=== PATIENT | female | born 1980 | race Caucasian/White ===

== ENCOUNTER 2017-04-25 11:22 | Emergency (ER) | payer OTHER ==
--- NOTE | 2017-04-25 12:38 | ED Physician Documentation ---
History of Present Illness - Stated complaint Stated Complaint: FACIAL PAIN - Chief complaint Chief Complaint: Heent - Additonal information Additional information: hx from pt 37 f denies poreg R facial pain over maxillary and frontal sinsu region for a few days some pain to uopper R premolar as well some green nasal dc no sore throat or cough no ear pain pain is steady n(ot electric like trigeminal neuralgia) Review of Systems Constitutional: denies: Fever, Chills Ears: denies: Ear pain Nose: reports: Rhinorrhea / runny nose, Sinus pressure / pain Throat: reports: Dental pain / toothache. denies: Sore throat Cardiac: denies: Chest pain / pressure Respiratory: denies: Dyspnea, Cough GI: denies: Abdominal Pain, Nausea, Vomiting Endocrine: denies: Easy bruising / bleeding Immunocompromised: denies: Immunocompromised PD PAST MEDICAL HISTORY - Past Medical History Past Medical History: Yes Respiratory: Asthma Endocrine/Autoimmune: HyPOthyroidism - Past Surgical History Past Surgical History: No - Present Medications Home Medications: Ambulatory Orders Medication Instructions Recorded Confirmed Albuterol [Ventolin Hfa] 2 puffs INH DAILY 04/08/15 04/25/17 Levothyroxine [Synthroid] 75 mcg PO DAILY 04/08/15 04/25/17 Acetaminophen [Tylenol Extra 1,000 mg PO Q8HR PRN 04/25/17 04/25/17 Strength] Amox/Clav 875/125 [Augmentin] 1 each PO Q12H #20 tablet 04/25/17 Loratadine [Claritin] 10 mg PO DAILY PRN #10 tablet 04/25/17 Oxymetazoline HCl [Afrin] 2 spray NS BID PRN #1 bottle 04/25/17 Pseudoephedrine [Sudafed] 30 mg PO Q6H PRN #20 tablet 04/25/17 - Allergies Allergies/Adverse Reactions: Allergies Allergy/AdvReac Type Severity Reaction Status Date / Time Sulfa (Sulfonamide Allergy abd pain Verified 01/08/14 13:28 Antibiotics) - Social History Does the pt smoke?: No Smoking Status: Never smoker Does the pt drink ETOH?: Yes Does the pt have substance abuse?: No - POLST Patient has POLST: No PD ED PE NORMAL - Vitals Vital signs reviewed: Yes - General General: Alert and oriented X 3 - HEENT HEENT: PERRL, EOMI (s pain), Ears normal, Moist mucous membranes, Pharynx benign , Other (cavity upper right premoalr but no TTP or gum swelling - pt advised, some right maxillary and frontal sinus TTP mostly pt states there is immense pressure) - Neck Neck: Supple, no meningeal sign - Cardiac Cardiac: RRR - Respiratory Respiratory: No respiratory distress, Clear bilaterally - Abdomen Abdomen: Soft, Non tender - Derm Derm: Normal color - Neuro Neuro: Alert and oriented X 3, No motor deficit, No sensory deficit Results - Vitals Vitals: Vital Signs - 24 hr 04/25/17 11:31 Temperature 36.4 C L Heart Rate 75 Respiratory 18 Rate Blood Pressure 133/81 H O2 Saturation 100 Oxygen O2 Source Room air Departure - Departure Disposition: Home, Self Care Clinical Impression: Sinusitis Condition: Good Instructions: ED Headache Sinus Prescriptions: Oxymetazoline HCl [Afrin] 2 spray NS BID PRN #1 bottle PRN Reason: nasal sinus ear congestion Amox/Clav 875/125 [Augmentin] 1 each PO Q12H #20 tablet Loratadine [Claritin] 10 mg PO DAILY PRN #10 tablet PRN Reason: sinus pressure Pseudoephedrine [Sudafed] 30 mg PO Q6H PRN #20 tablet PRN Reason: sinus pressure Comments: It seems the pain and pressure is coming from your sinuses Try the sudafed, afrin, and claritin for 48 hr - if that does not relieve the symptoms then start the antibiotic as well. Continue motrin and tylenol for the pain Follow up with your PMD for a recheck Return to the ER if worse Please follow up with christian RICKS to get your blood pressure rechecked - it was high today Forms: Activity restrictions
[2017-04-25 12:53] VITALS: BP 102/66
== END 2017-04-25 12:52 | disposition home or self-care (01) ==
LOC: ED 11:22
DX: J32.9 Chronic sinusitis, unspecified (principal); J45.909 Unspecified asthma, uncomplicated; E03.9 Hypothyroidism, unspecified
CPT/HCPCS: 99283

== ENCOUNTER 2017-11-05 22:21 | Emergency (ER) | payer OTHER ==
[2017-11-05 22:28] VITALS: BP 138/96
[2017-11-05 22:37] LABS: BILIRUBIN,URINE NEGATIVE (NEGATIVE); GLUCOSE, URINE (UA) NEGATIVE (NEGATIVE); KETONES,URINE (UA) NEGATIVE (NEGATIVE); LEUKOCYTE ESTERASE, URINE MODERATE (NEGATIVE); NITRITE,URINE NEGATIVE (NEGATIVE); OCCULT BLOOD,URINE LARGE (NEGATIVE); PROTEIN,URINE NEGATIVE (NEGATIVE); UROBILINOGEN,URINE 0.2 (NORMAL) E.U./dL (NORMAL)
[2017-11-05 22:40] LABS: CLARITY,URINE HAZY (CLEAR)
[2017-11-05 22:51] LABS: BACTERIA,URINE Moderate /HPF (None Seen); SQUAMOUS EPITHELIAL CELL,UR FEW Squamous (<= Few)
[2017-11-05 22:52] LABS: HCG UR QUAL NEGATIVE
[2017-11-05] MEDS ORDERED: PHENAZOPYRIDINE 100 MG TABLET PO STA (22:55)
[2017-11-05] MEDS ORDERED: NITROFURANTOIN MACRO 100 MG CAPSULE PO STA (22:55)
--- NOTE | 2017-11-05 22:57 | ED Physician Documentation ---
History of Present Illness - Stated complaint Stated Complaint: FEMALE - Chief complaint Chief Complaint: UTI - History obtained from History obtained from: Patient - History of Present Illness Timing: How many hours ago (2) Pain level max: 10 Pain level now: 10 - Additonal information Additional information: Patient is a 37-year-old female who had a sudden onset of dysuria approximately 2 hours ago. States feels like previous UTIs. Has frequency of urination as well. No fevers. Mild nausea. No back pain. No abdominal pain. No vaginal bleeding or discharge. No recent changes in sexual partners. Review of Systems Constitutional: denies: Fever, Chills Respiratory: denies: Cough GI: denies: Abdominal Pain, Vomiting, Diarrhea : reports: Dysuria, Frequency. denies: Now EGA Musculoskeletal: denies: Neck pain, Back pain Neurologic: denies: Headache PD PAST MEDICAL HISTORY - Past Medical History Past Medical History: Yes Respiratory: Asthma Endocrine/Autoimmune: HyPOthyroidism - Past Surgical History Past Surgical History: No - Present Medications Home Medications: Ambulatory Orders Medication Instructions Recorded Confirmed Levothyroxine [Synthroid] 75 mcg PO DAILY 04/08/15 11/05/17 Nitrofurantoin Monohyd/M-Cryst 100 mg PO BID #10 capsule 11/05/17 [Macrobid 100 mg Capsule] Phenazopyridine HCl [Pyridium] 200 mg PO TID PRN #6 tablet 11/05/17 - Allergies Allergies/Adverse Reactions: Allergies Allergy/AdvReac Type Severity Reaction Status Date / Time Sulfa (Sulfonamide Allergy abd pain Verified 11/05/17 22:28 Antibiotics) - Social History Does the pt smoke?: No Smoking Status: Never smoker Does the pt drink ETOH?: Yes Does the pt have substance abuse?: No - POLST Patient has POLST: No PD ED PE NORMAL - Vitals Vital signs reviewed: Yes - General General: Alert and oriented X 3, No acute distress - HEENT HEENT: Moist mucous membranes - Neck Neck: Supple, no meningeal sign - Cardiac Cardiac: RRR - Respiratory Respiratory: No respiratory distress, Clear bilaterally - Abdomen Abdomen: Soft, Non tender, Non distended - Back Back: No CVA TTP - Derm Derm: Warm and dry - Neuro Neuro: Alert and oriented X 3 - Psych Psych: Normal mood, Normal affect Results - Vitals Vitals: Vital Signs - 24 hr 11/05/17 22:27 Temperature 36.2 C L Heart Rate 90 Respiratory 20 Rate Blood Pressure 138/96 H O2 Saturation 100 Oxygen O2 Source Room air - Labs Labs: Laboratory Tests 11/05/17 11/05/17 22:28 22:28 Urine Color LT. YELLOW Urine Clarity HAZY Urine pH 7.0 Ur Specific [place] <=1.005 <=1.005 Urine Protein NEGATIVE Urine Glucose (UA) NEGATIVE Urine Ketones NEGATIVE Urine Occult Blood LARGE H Urine Nitrite NEGATIVE Urine Bilirubin NEGATIVE Urine Urobilinogen 0.2 (NORMAL) Ur Leukocyte Esterase MODERATE H Urine RBC 6-10 H Urine WBC 11-25 H Ur Squamous Epith Cells FEW Squamous Urine Bacteria Moderate H Ur Microscopic Review INDICATED Urine Culture Comments INDICATED Urine HCG, Qual NEGATIVE PD MEDICAL DECISION MAKING - ED course Complexity details: considered differential, d/w patient ED course: Patient with a UTI. Will place on antibiotics and Pyridium. She is well- appearing, nontoxic. Declines a pelvic exam. I think this is reasonable we will treat her for the UTI. Patient counseled regarding signs and symptoms for which I believe and urgent re-evaluation would be necessary. Patient with good understanding of and agreement to plan and is comfortable going home at this time This document was made in part using voice recognition software. While efforts are made to proofread this document, sound alike and grammatical errors may occur. Departure - Departure Disposition: 01 Home, Self Care Clinical Impression: Cystitis Condition: Good Instructions: ED UTI Cystitis Female Follow-Up: your,doctor in 1 week if not better [Other] Prescriptions: Nitrofurantoin Monohyd/M-Cryst [Macrobid 100 mg Capsule] 100 mg PO BID #10 capsule Phenazopyridine HCl [Pyridium] 200 mg PO TID PRN #6 tablet PRN Reason: dysuria Comments: Return if you worsen. Take all antibiotics until gone.
== END 2017-11-05 23:03 | disposition home or self-care (01) ==
LOC: ED 22:21
DX: N30.90 Cystitis, unspecified without hematuria (principal); E03.9 Hypothyroidism, unspecified
CPT/HCPCS: 81001; 81025; 87086; 87181; 99283; A9270; 81003

== ENCOUNTER 2018-01-28 07:19 | Emergency (ER) | payer OTHER ==
[2018-01-28 07:28] VITALS: BP 124/79
[2018-01-28 07:41] LABS: BILIRUBIN,URINE NEGATIVE (NEGATIVE); GLUCOSE, URINE (UA) NEGATIVE (NEGATIVE); KETONES,URINE (UA) NEGATIVE (NEGATIVE); LEUKOCYTE ESTERASE, URINE MODERATE (NEGATIVE); NITRITE,URINE POSITIVE (NEGATIVE); OCCULT BLOOD,URINE NEGATIVE (NEGATIVE); PH,URINE 5.5 PH (5.0-7.5); PROTEIN,URINE TRACE mg/dL (NEGATIVE); UROBILINOGEN,URINE 1 (NORMAL) E.U./dL (NORMAL)
--- NOTE | 2018-01-28 07:42 | ED Physician Documentation ---
PD HPI FEMALE - Stated complaint Stated Complaint: FEMALE - Chief complaint Chief Complaint: Abd Pain - History obtained from History obtained from: Patient - History of Present Illness Timing - onset: Last night Timing - duration: Hours Timing - details: Gradual onset, Still present Associated symptoms: Dysuria, Urinary frequency. No: Back pain, Vaginal discharge Contributing factors: No: Similar symptoms before: Diagnosis (UTI) Recently seen: Not recently seen - Additional information Additional information: Previously well 37-year-old female has developed symptoms of urinary urgency and frequency beginning last night. She has had urinary tract infections previously a number of times, last in September of this year, and she feels that she has another urinary tract infection. She is not having fever or back pain and she is not having nausea. Review of Systems Constitutional: denies: Fever, Chills, Myalgias Nose: denies: Congestion Throat: denies: Sore throat Respiratory: denies: Dyspnea, Cough GI: denies: Abdominal Pain, Nausea, Vomiting : reports: Dysuria, Frequency Skin: denies: Rash Musculoskeletal: denies: Neck pain, Back pain, Extremity pain Neurologic: denies: Generalized weakness, Focal weakness, Numbness PD PAST MEDICAL HISTORY - Past Medical History Respiratory: Asthma Endocrine/Autoimmune: HyPOthyroidism - Past Surgical History Past Surgical History: No - Present Medications Home Medications: Ambulatory Orders Medication Instructions Recorded Confirmed Phenazopyridine HCl [Pyridium] 200 mg PO TID PRN #6 tablet 11/05/17 Nitrofurantoin Monohyd/M-Cryst 100 mg PO BID #10 capsule 01/28/18 [Macrobid 100 mg Capsule] Phenazopyridine HCl [Pyridium] 200 mg PO TID PRN #6 tablet 01/28/18 - Allergies Allergies/Adverse Reactions: Allergies Allergy/AdvReac Type Severity Reaction Status Date / Time Sulfa (Sulfonamide Allergy abd pain Verified 01/28/18 07:28 Antibiotics) - Social History Does the pt smoke?: No Smoking Status: Never smoker Does the pt drink ETOH?: Yes Does the pt have substance abuse?: No - POLST Patient has POLST: No PD ED PE NORMAL - Vitals Vital signs reviewed: Yes (normal ) - General General: Alert and oriented X 3, No acute distress, Well developed/nourished - HEENT HEENT: Atraumatic, PERRL - Neck Neck: Supple, no meningeal sign - Respiratory Respiratory: No respiratory distress - Back Back: No CVA TTP - Derm Derm: Normal color, Warm and dry, No rash - Extremities Extremities: No deformity, No edema - Neuro Neuro: No motor deficit, No sensory deficit Eye Opening: Spontaneous Motor: Obeys Commands Verbal: Oriented GCS Score: 15 - Psych Psych: Normal mood, Normal affect Results - Vitals Vitals: Vital Signs - 24 hr 01/28/18 07:24 Temperature 36.6 C Heart Rate 68 Respiratory 16 Rate Blood Pressure 124/79 O2 Saturation 100 Oxygen O2 Source Room air - Labs Labs: Laboratory Tests 01/28/18 07:38 Urine Color DK. ORANGE Urine Clarity CLEAR Urine pH 5.5 Ur Specific [place] 1.025 Urine Protein TRACE Urine Glucose (UA) NEGATIVE Urine Ketones NEGATIVE Urine Occult Blood NEGATIVE Urine Nitrite POSITIVE H Urine Bilirubin NEGATIVE Urine Urobilinogen 1 (NORMAL) Ur Leukocyte Esterase MODERATE H Urine RBC 0-5 Urine WBC 11-25 H Ur Squamous Epith Cells FEW Squamous Urine Bacteria Rare Ur Microscopic Review INDICATED Urine Culture Comments INDICATED Urine HCG, Qual NEGATIVE PD MEDICAL DECISION MAKING - ED course Complexity details: reviewed results, re-evaluated patient, considered differential, d/w patient ED course: 37-year-old female with typical symptoms of urinary tract infection that began last night has improved previously on Macrobid. Departure - Departure Disposition: 01 Home, Self Care Clinical Impression: Urinary tract infection Qualifiers: Urinary tract infection type: acute cystitis Hematuria presence: without hematuria Qualified Code(s): N30.00 - Acute cystitis without hematuria Condition: Stable Instructions: ED UTI Cystitis Female Follow-Up: TOI TRINIDAD [Primary Care Provider] - Prescriptions: Nitrofurantoin Monohyd/M-Cryst [Macrobid 100 mg Capsule] 100 mg PO BID #10 capsule Phenazopyridine HCl [Pyridium] 200 mg PO TID PRN #6 tablet PRN Reason: urinary symptoms Discharge Date/Time: 01/28/18 08:08
[2018-01-28 07:54] LABS: CLARITY,URINE CLEAR (CLEAR); HCG UR QUAL NEGATIVE
[2018-01-28 08:02] LABS: RBC,URINE 0-5 /HPF (0-5); SQUAMOUS EPITHELIAL CELL,UR FEW Squamous (<= Few)
[2018-01-28 08:03] LABS: BACTERIA,URINE Rare /HPF (None Seen)
== END 2018-01-28 08:08 | disposition home or self-care (01) ==
LOC: ED 07:19
DX: N30.00 Acute cystitis without hematuria (principal); E03.9 Hypothyroidism, unspecified
CPT/HCPCS: 81001; 81003; 81025; 87077; 87086; 99283

== ENCOUNTER 2018-05-26 23:15 | Emergency (ER) | payer OTHER ==
[2018-05-26 23:23] VITALS: BP 116/77
--- NOTE | 2018-05-26 23:39 | ED Physician Documentation ---
PD HPI HEENT - Stated complaint Stated Complaint: THROAT/EAR PX - Chief complaint Chief Complaint: Heent - History obtained from History obtained from: Patient PD PAST MEDICAL HISTORY - Past Medical History Respiratory: Asthma Endocrine/Autoimmune: HyPOthyroidism - Past Surgical History Past Surgical History: No - Present Medications Home Medications: Ambulatory Orders Medication Instructions Recorded Confirmed Cephalexin [Keflex] 500 mg PO TID #20 capsule 05/26/18 Dexamethasone [Decadron] 4 mg PO DAILY #5 tablet 05/26/18 - Allergies Allergies/Adverse Reactions: Allergies Allergy/AdvReac Type Severity Reaction Status Date / Time Sulfa (Sulfonamide Allergy abd pain Verified 05/26/18 23:26 Antibiotics) - Social History Does the pt smoke?: No Smoking Status: Never smoker Does the pt drink ETOH?: Yes Does the pt have substance abuse?: No - POLST Patient has POLST: No PD ED PE NORMAL - Vitals Vital signs reviewed: Yes - General General: Alert and oriented X 3, No acute distress, Well developed/nourished - HEENT HEENT: No: Pharynx benign (right side okay. Left tonsil with some swelling and redness. No exudate. The base of it with some redness around the tonsil. No protrusion of the tonsil toward midline. Left anterior adenopathy. Normal voice and respirations. ) - Neck Neck: Supple, no meningeal sign, Other (left adenopathy) - Cardiac Cardiac: RRR, No murmur - Respiratory Respiratory: No respiratory distress, Clear bilaterally - Abdomen Abdomen: Soft, Non tender - Derm Derm: Normal color, Warm and dry, No rash - Neuro Neuro: Alert and oriented X 3, No motor deficit, Normal speech Results - Vitals Vitals: Vital Signs - 24 hr 05/26/18 23:15 Temperature 36.9 C Heart Rate 59 L Respiratory 16 Rate Blood Pressure 116/77 O2 Saturation 100 Oxygen O2 Source Room air - Labs Labs: Laboratory Tests 05/26/18 23:22 Group A Strep Rapid Negative PD MEDICAL DECISION MAKING - ED course Complexity details: reviewed results (rapid test negative but she has clinical exam suspicious for mild/early peritonsillar infection, so will treat with abx and steroids Normal swallowing and voice. ), considered differential, d/w patient - Sepsis Event Vital Signs: Vital Signs - 24 hr 05/26/18 23:15 Temperature 36.9 C Heart Rate 59 L Respiratory 16 Rate Blood Pressure 116/77 O2 Saturation 100 Oxygen O2 Source Room air Departure - Departure Disposition: 01 Home, Self Care Clinical Impression: Peritonsillar cellulitis, Acute cervical adenitis Condition: Stable Record reviewed to determine appropriate education?: Yes Instructions: ED Peritonsillar Infec Abx No I andD Follow-Up: TOI TRINIDAD [Primary Care Provider] - Prescriptions: Cephalexin [Keflex] 500 mg PO TID #20 capsule Dexamethasone [Decadron] 4 mg PO DAILY #5 tablet Comments: Drink lots of fluids. Tylenol or ibuprofen if needed for pains or fevers. Cephalexin 3 times a day for the next week for the infection that looks likely bacterial. Decadron anti-inflammatory daily for 5 more days to reduce the inflammation as well. Recheck if not improving over the next couple of days. 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 Discharge Date/Time: 05/27/18 00:00
[2018-05-26] MEDS ORDERED: DEXAMETHASONE 10 MG/ML VIAL PO STA (23:49)
[2018-05-26] MEDS ORDERED: cephALEXin 250 MG CAPSULE PO STA (23:49)
[2018-05-26] MEDS ORDERED: ACETAMINOPHEN 325 MG TABLET PO STA (23:49)
== END 2018-05-27 | disposition home or self-care (01) ==
LOC: ED 23:15
DX: J36 Peritonsillar abscess (principal); L04.0 Acute lymphadenitis of face, head and neck
CPT/HCPCS: 87070; 87430; 99283; A9270

== ENCOUNTER 2022-06-15 08:00 | Outpatient (CLI) | payer OTHER | END 2022-06-15 23:59 | disposition home or self-care (01) | LOC: LAB.N 08:00 | PROVIDERS: ATTEND Family Medicine | DX: N39.0 Urinary tract infection, site not specified (principal) | CPT/HCPCS: 87086; 87181 ==

== ENCOUNTER 2022-08-23 16:29 | Emergency (ER) | payer OTHER ==
[2022-08-23 16:56] LABS: RAPID STREP SCREEN Negative (Negative)
[2022-08-23 17:10] VITALS: BP 123/78
--- NOTE | 2022-08-23 17:15 | ED Physician Documentation ---
History of Present Illness - Stated complaint Stated Complaint: SORE THROAT, TESTED C+ - Chief complaint Chief Complaint: General - History obtained from History obtained from: Patient - Additonal information Additional information: Pt comes to the ED with CC of "I think I have strep." Pt has had nasal congestion, a cough, and a mild fever for the past 24 hours. Now has a sore throat and nausea, and states it's like when she's had strep before. No chest or abd pain. Tested positive for covid today. Review of Systems Ten Systems: 10 systems reviewed and negative Constitutional: reports: Reviewed and negative Eyes: reports: Reviewed and negative Ears: reports: Reviewed and negative Nose: reports: Rhinorrhea / runny nose, Congestion Throat: reports: Sore throat Cardiac: reports: Reviewed and negative Respiratory: reports: Cough GI: reports: Nausea : reports: Reviewed and negative Skin: reports: Reviewed and negative Musculoskeletal: reports: Reviewed and negative Neurologic: reports: Reviewed and negative Psychiatric: reports: Reviewed and negative Endocrine: reports: Reviewed and negative Immunocompromised: reports: Reviewed and negative PD PAST MEDICAL HISTORY - Past Medical History Respiratory: Asthma Endocrine/Autoimmune: HyPOthyroidism - Past Surgical History Past Surgical History: No - Present Medications Home Medications: Ambulatory Orders Medication Instructions Recorded Confirmed cephALEXin [Keflex] 500 mg PO TID #20 capsule 05/26/18 dexAMETHasone [Decadron] 4 mg PO DAILY #5 tablet 05/26/18 predniSONE [Deltasone] 60 mg PO DAILY 5 Days #15 tablet 08/23/22 - Allergies Allergies/Adverse Reactions: Allergies Allergy/AdvReac Type Severity Reaction Status Date / Time Sulfa (Sulfonamide Allergy abd pain Verified 08/23/22 16:40 Antibiotics) - Social History Does the pt smoke?: No Smoking Status: Never smoker Does the pt drink ETOH?: Yes Does the pt have substance abuse?: No - POLST Patient has POLST: No PD ED PE NORMAL - Vitals Vital signs reviewed: Yes - General General: Alert and oriented X 3, No acute distress, Well developed/nourished - HEENT HEENT: Atraumatic, PERRL, EOMI, Moist mucous membranes, Pharynx benign - Neck Neck: Supple, no meningeal sign - Cardiac Cardiac: RRR, No murmur, Strong equal pulses - Respiratory Respiratory: No respiratory distress, Clear bilaterally - Abdomen Abdomen: Soft, Non tender, Non distended - Derm Derm: Normal color, Warm and dry, No rash - Extremities Extremities: No deformity - Neuro Neuro: Alert and oriented X 3 - Psych Psych: Normal mood, Normal affect Results - Vitals Vitals: Vital Signs - 24 hr 08/23/22 08/23/22 16:39 17:10 Temperature 37 C 37.2 C Heart Rate 72 73 Respiratory 16 16 Rate Blood Pressure 115/72 123/78 O2 Saturation 100 100 Oxygen O2 Source Room air - Labs Labs: Microbiology 08/23/22 16:43 Group A Strep Throat Culture - Preliminary Throat CULTURE IN PROGRESS. RESULTS TO FOLLOW. Laboratory Tests 08/23/22 16:43 Group A Strep Rapid Negative PD MEDICAL DECISION MAKING - ED course Complexity details: reviewed results, re-evaluated patient, considered differential, d/w patient ED course: Strep test negative. D/w pt that her sx are due to the covid. We have discussed home management of the sx, as well as the usual indications for return. Departure - Departure Disposition: 01 Home, Self Care Clinical Impression: Acute viral pharyngitis, COVID Condition: Stable Instructions: ED Pharyngitis Viral, ED Viral Syndrome Prescriptions: predniSONE [Deltasone] 60 mg PO DAILY 5 Days #15 tablet Comments: Your strep test is negative and your throat examination does not reveal the classic appearance of strep throat. Most likely, your sore throat is due to the viral illness you have with the COVID. You may continue to take ibuprofen and Tylenol if needed for discomfort or fever. You should also aim to drink plenty of water. A prescription for some medicine for your throat pain has been electronically transmitted to [facility] in [place]. You may expect your symptoms to last anywhere from several days to a couple of weeks. You should stay off work until you are feeling better enough to go back Forms: Activity restrictions Discharge Date/Time: 08/23/22 17:21
== END 2022-08-23 17:21 | disposition home or self-care (01) ==
LOC: ED 16:29
DX: U07.1 COVID-19 (principal)
CPT/HCPCS: 87070; 87430; 99282; 99283